=== PATIENT | male | born 1985 | race Caucasian/White ===

== ENCOUNTER 2021-02-03 08:43 | Outpatient (CLI) | payer OTHER, SELFPAY ==
--- NOTE | 2021-02-07 15:35 | WPDHOLTEREM ---
Holter/Event Monitor Holter/Event Monitor Date of procedure: 02/03/21 Holter/Event Procedure: 48 Hr Holter Monitor Indications: PAF Conclusion: 1. 48 hour holter monitor on 02/03/21. 2. Predominant rhythm is sinus rhythm. HR range 39-145 bpm; average HR 75 bpm. 3. There are 98 premature supraventricular complexes and 4 supraventricular couplets. There are 15 episodes of short runs of atrial fibrillation with a total burden of 3.4 minutes or 0.1%. 4. There are 252 premature ventricular complexes, 11 ventricular couplets, 41 ventricular bigeminy. No ventricular tachycardia. 5. No sinoatrial or atrioventricular blocks. No significant pauses greater than 2 seconds. 6. Patient reports symptoms of irregular beats, skipped beats which demonstrate sinus rhythm, HR range 57-90 bpm and in a few of them there were PAC's and PVC's, and one atria fibrillation at 140 bpm at 02:09.
== END 2021-02-03 08:44 | disposition home or self-care (01) ==
PROVIDERS: PCP Internal Medicine; Visit Provider Internal Medicine Cardiovascular Disease
DX: I48.0 Paroxysmal atrial fibrillation (principal)
CPT/HCPCS: 93225; 93226